=== PATIENT | male | born 1980 | race Caucasian/White ===

== ENCOUNTER 2018-02-09 00:52 | Emergency (ER) | payer MEDICAID, OTHER ==
[2018-02-09] MEDS ORDERED: Acetaminophen/HYDROcodone 325-5 MG Tab ONE (01:20)
[2018-02-09] MEDS ORDERED: Diphtheria,Pertussis(Acell),Tetanus Vaccine 0.5 ML SDV inactive IM ONE (01:40)
--- NOTE | 2018-02-09 03:21 | ER ---
HISTORY OF PRESENT ILLNESS: The patient is a 37-year-old male who comes in today having caught his fingers in the door to his wood stove. The patient has a large laceration going over the DIP joint on the index finger. He has a couple of tiny superficial lacerations on the other 2 fingers next to it. Digital block was done and this was closed with 4-0 Ethilon interrupted, some of the loose skin was debrided away. We did go ahead and obtain an x-ray afterwards. The patient has a fracture of the distal phalanx with one of the fragments appearing somewhat displaced dorsally. He is in a splint. We did push the distal tip up, but it is likely going to need to be pushed back down in the end given that it is an open fracture, we went ahead and started him on some Ceftin 500 mg 1 p.o. b.i.d. This was all done with a sterile prep and drape and 1% lidocaine digital block. We will go ahead and send the x-rays down to the orthopedic surgeon tomorrow so he can look at them and we will see the patient back in a couple of days unless the orthopedic surgeon wants to see him sooner. The finger was splinted after it was sutured, but again this fragment might need to be pushed down further, which may require opening the finger again. Assesment: Laceration 1.5 cm finger Distal Phanlanx fracture, L index finger, open RD/MODL /[id number] CURLY
--- NOTE | 2018-02-10 07:43 | CR ---
DATE OF SERVICE: 02/09/2018 CLINICAL DATA: Avulsion injury. LEFT SECOND DIGIT: No priors. There is a displaced, intra-articular avulsion fracture from the base of the distal phalanx best seen on the oblique view. No other acute abnormalities. [id number] [facility]
== END 2018-02-09 02:15 | disposition home or self-care (01) ==
LOC: LB.ED 00:52
DX: S62.631A Displaced fracture of distal phalanx of left index finger, initial encounter for closed fracture (principal); S61.211A Laceration without foreign body of left index finger without damage to nail, initial encounter; Z23 Encounter for immunization; W23.0XXA Caught, crushed, jammed, or pinched between moving objects, initial encounter
CPT/HCPCS: 12001; 73140; 90471; 90715; 99283; A9270

== ENCOUNTER 2021-04-29 08:12 | Emergency (ER) | payer SELFPAY ==
[2021-04-29] MEDS: cefTRIAXone 1 GM Vial ONE (08:54)
[2021-04-29] MEDS: Ketorolac 60 MG/2 ML SDV ONE (08:55)
[2021-04-29] MEDS ORDERED: Acetaminophen/oxyCODONE 325-5 MG Tab ONE (09:00)
[2021-04-29] MEDS ORDERED: cefTRIAXone 1 GM Vial IM ONE (09:02)
[2021-04-29] MEDS ORDERED: Ketorolac 60 MG/2 ML SDV IM ONE (09:02)
== END 2021-04-29 09:04 | disposition home or self-care (01) ==
LOC: LB.ED 08:12
DX: K04.7 Periapical abscess without sinus (principal)
CPT/HCPCS: 96372; 99282; A9270; J0696; J1885

== ENCOUNTER 2021-04-30 09:08 | Emergency (ER) | payer SELFPAY ==
[2021-04-30] MEDS: methylPREDNISolone Sodium Succinate 125 MG/2 ML SDV IM ONE (10:20)
[2021-04-30] MEDS: methylPREDNISolone Sodium Succinate 125 MG/2 ML SDV ONE (10:23)
== END 2021-04-30 11:33 | disposition home or self-care (01) ==
LOC: LB.ED 09:08
DX: K04.7 Periapical abscess without sinus (principal)
CPT/HCPCS: 36415; 70486; 80053; 83605; 85025; 85651; 96372; 99283-25; J2930